=== PATIENT | female | born 1995 | race Two or more races ===

== ENCOUNTER 2017-01-11 21:39 | Emergency (ER) | payer SELFPAY ==
[2015-11-03 21:00] VITALS: BMI 28.4
[~2017-01-11 21:39] MED LIST: ACETAMINOPHEN325 MG PO; IBUPROFEN600 MG PO; PERCOCET 10/3251 TA1 PO; PRENATAL COMPLE1 TAB PO
== END 2017-01-11 23:30 | disposition home or self-care (01) ==
LOC: D.ER 21:39
DX: S16.1XXA Strain of muscle, fascia and tendon at neck level, initial encounter (principal); V43.52XA Car driver injured in collision with other type car in traffic accident, initial encounter; Y93.89 Activity, other specified; Y92.410 Unspecified street and highway as the place of occurrence of the external cause; F17.200 Nicotine dependence, unspecified, uncomplicated

== ENCOUNTER 2017-10-22 15:51 | Emergency (ER) | payer SELFPAY ==
[2015-11-03 21:00] VITALS: BMI 28.4
[2017-10-22 16:35] LABS: BASOPHILS 0.2 % (0-2); EOSINOPHILS 1.9 % (0-7); HEMATOCRIT 41.9 % (36.0-48.0); HEMOGLOBIN 13.8 g/dL (12-16); IMMATURE GRANULOCYTES 0.3 % (0-5); LYMPHOCYTES 28.2 % (15-50); MCH 29.4 pg (26.0-34.0); MCHC 32.9 g/dL (31.0-37.0); MCV 89.3 fL (80.0-100.0); MEAN PLATELET VOLUME 10.7 fL (7.4-10.4); MONOCYTES 7.9 % (2-11); NEUTROPHILS 61.5 % (40-80); RBC 4.69 10x6/uL (4.00-5.40); RDW 13.6 % (11.5-14.5); WBC 8.8 10x3/uL (4.8-10.8)
[2017-10-22 16:52] LABS: PLATELET COUNT 220 10x3/uL (130-400)
[2017-10-22 16:58] LABS: APPEARANCE CLEAR (CLEAR); BILIRUBIN NEGATIVE (NEGATIVE); COLOR YELLOW (YELLOW); GLUCOSE NEGATIVE (NEGATIVE); HCG URINE POSITIVE (NEGATIVE); KETONE NEGATIVE (NEGATIVE); NITRITE NEGATIVE (NEGATIVE); PROTEIN NEGATIVE (NEGATIVE); SPECIFIC GRAVITY 1.015 (1.005-1.020); UROBILINOGEN NORMAL (NORMAL)
[2017-10-22 17:12] LABS: ALBUMIN 3.7 g/dL (3.4-5.0); ALKALINE PHOSPHATASE 37 U/L (46-116); ALT (SGPT) 39 U/L (10-68); BILIRUBIN - TOTAL 1.05 mg/dL (0.2-1.3); CALC OSMOLALITY 275 mosm/kg (275-300); CALCIUM 8.8 mg/dL (8.5-10.1); CARBON DIOXIDE 27.6 mmol/L (21.0-32.0); CHLORIDE - SERUM 101 mmol/L (98-107); CREATININE - SERUM 0.6 mg/dL (0.6-1.3); GLUCOSE 100 mg/dL (74-106); POTASSIUM - SERUM 3.3 mmol/L (3.5-5.1); PROTEIN - SERUM 7.5 g/dL (6.4-8.2); SODIUM 138 mmol/L (136-145); UREA NITROGEN 13 mg/dL (7-18); eGFR NON AFRICAN AMERICAN > 90 mL/min (90-120)
[2017-10-22 17:34] LABS: HCG - QUANTITATIVE (MATERNAL) 27359 mIU/mL
== END 2017-10-22 17:50 | disposition home or self-care (01) ==
LOC: D.ER 15:51
PROVIDERS: Physician Assistant Medical
DX: O21.9 Vomiting of pregnancy, unspecified (principal); Z3A.01 Less than 8 weeks gestation of pregnancy

== ENCOUNTER 2017-11-21 14:07 | Emergency (ER) | payer MEDICAID ==
[2015-11-03 21:00] VITALS: BMI 28.4
[2017-11-21 16:02] LABS: BASOPHILS 0.1 % (0-2); EOSINOPHILS 1.6 % (0-7); HEMATOCRIT 39.5 % (36.0-48.0); HEMOGLOBIN 13.4 g/dL (12-16); IMMATURE GRANULOCYTES 0.3 % (0-5); LYMPHOCYTES 26.2 % (15-50); MCH 29.8 pg (26.0-34.0); MCHC 33.9 g/dL (31.0-37.0); MCV 87.8 fL (80.0-100.0); MEAN PLATELET VOLUME 10.5 fL (7.4-10.4); MONOCYTES 7.3 % (2-11); NEUTROPHILS 64.5 % (40-80); PLATELET COUNT 203 10x3/uL (130-400); RDW 13.1 % (11.5-14.5); WBC 8.8 10x3/uL (4.8-10.8)
[2017-11-21 16:14] LABS: APPEARANCE CLEAR (CLEAR); BILIRUBIN NEGATIVE (NEGATIVE); COLOR YELLOW (YELLOW); GLUCOSE NEGATIVE (NEGATIVE); KETONE NEGATIVE (NEGATIVE); NITRITE NEGATIVE (NEGATIVE); PROTEIN NEGATIVE (NEGATIVE); UROBILINOGEN NORMAL (NORMAL)
[2017-11-21 16:15] LABS: ALBUMIN 3.4 g/dL (3.4-5.0); ALKALINE PHOSPHATASE 38 U/L (46-116); ALT (SGPT) 28 U/L (10-68); CALC OSMOLALITY 268 mosm/kg (275-300); CALCIUM 8.7 mg/dL (8.5-10.1); CARBON DIOXIDE 27.8 mmol/L (21.0-32.0); CHLORIDE - SERUM 100 mmol/L (98-107); CREATININE - SERUM 0.5 mg/dL (0.6-1.3); GLUCOSE 77 mg/dL (74-106); POTASSIUM - SERUM 3.5 mmol/L (3.5-5.1); PROTEIN - SERUM 7.3 g/dL (6.4-8.2); SODIUM 136 mmol/L (136-145); UREA NITROGEN 7 mg/dL (7-18); eGFR NON AFRICAN AMERICAN > 90 mL/min (90-120)
== END 2017-11-21 17:26 | disposition home or self-care (01) ==
LOC: D.ER 14:07
PROVIDERS: Family Medicine
DX: O21.9 Vomiting of pregnancy, unspecified (principal); Z3A.10 10 weeks gestation of pregnancy

== ENCOUNTER 2017-11-25 23:17 | Emergency (ER) | payer MEDICAID ==
[2015-11-03 21:00] VITALS: BMI 28.4
[2017-11-25 23:55] LABS: BASOPHILS 0.1 % (0-2); EOSINOPHILS 1.9 % (0-7); HEMATOCRIT 38.2 % (36.0-48.0); HEMOGLOBIN 12.9 g/dL (12-16); IMMATURE GRANULOCYTES 0.4 % (0-5); LYMPHOCYTES 28.4 % (15-50); MCH 29.8 pg (26.0-34.0); MCHC 33.8 g/dL (31.0-37.0); MCV 88.2 fL (80.0-100.0); MEAN PLATELET VOLUME 10.6 fL (7.4-10.4); MONOCYTES 6.5 % (2-11); NEUTROPHILS 62.7 % (40-80); PLATELET COUNT 200 10x3/uL (130-400); RBC 4.33 10x6/uL (4.00-5.40); RDW 13.1 % (11.5-14.5)
[2017-11-26 00:21] LABS: HCG SERUM POSITIVE (NEGATIVE)
[2017-11-26 00:23] LABS: APPEARANCE CLEAR (CLEAR); BILIRUBIN NEGATIVE (NEGATIVE); COLOR YELLOW (YELLOW); GLUCOSE NEGATIVE (NEGATIVE); KETONE NEGATIVE (NEGATIVE); NITRITE NEGATIVE (NEGATIVE); PROTEIN NEGATIVE (NEGATIVE); UROBILINOGEN NORMAL (NORMAL)
[2017-11-26 00:24] LABS: BACTERIA FEW /hpf (NONE SEEN); EPITHELIAL CELLS 0-5 /hpf (0-5); SPERMATOZOA PRESENT /hpf (NONE SEEN); WHITE CELLS - URINE 0-5 /hpf (0-5)
== END 2017-11-26 03:05 | disposition home or self-care (01) ==
LOC: D.ER 23:17
PROVIDERS: Family Medicine
DX: O20.0 Threatened abortion (principal); Z3A.11 11 weeks gestation of pregnancy

== ENCOUNTER 2017-12-24 17:12 | Emergency (ER) | payer MEDICAID ==
[2015-11-03 21:00] VITALS: BMI 28.4
[2017-12-24 17:55] LABS: BASOPHILS 0.1 % (0-2); EOSINOPHILS 1.8 % (0-7); HEMATOCRIT 37.4 % (36.0-48.0); HEMOGLOBIN 12.5 g/dL (12-16); IMMATURE GRANULOCYTES 0.3 % (0-5); LYMPHOCYTES 24.4 % (15-50); MCH 29.9 pg (26.0-34.0); MCHC 33.4 g/dL (31.0-37.0); MCV 89.5 fL (80.0-100.0); MEAN PLATELET VOLUME 10.7 fL (7.4-10.4); MONOCYTES 5.4 % (2-11); PLATELET COUNT 212 10x3/uL (130-400); RBC 4.18 10x6/uL (4.00-5.40); RDW 12.9 % (11.5-14.5); WBC 7.3 10x3/uL (4.8-10.8)
[2017-12-24 18:34] LABS: HCG SERUM POSITIVE (NEGATIVE)
[2017-12-24 18:44] LABS: APPEARANCE CLEAR (CLEAR); BILIRUBIN NEGATIVE (NEGATIVE); COLOR YELLOW (YELLOW); EPITHELIAL CELLS OCC /hpf (0-5); GLUCOSE NEGATIVE (NEGATIVE); KETONE NEGATIVE (NEGATIVE); NITRITE NEGATIVE (NEGATIVE); PROTEIN NEGATIVE (NEGATIVE); RED CELLS - URINE OCC /hpf (0-5); UROBILINOGEN NORMAL (NORMAL); WHITE CELLS - URINE OCC /hpf (0-5)
[2017-12-24 18:45] LABS: BACTERIA FEW /hpf (NONE SEEN)
== END 2017-12-24 20:56 | disposition home or self-care (01) ==
LOC: D.ER 17:12
PROVIDERS: Emergency Medicine; Nurse Practitioner Family
DX: O20.9 Hemorrhage in early pregnancy, unspecified (principal); Z3A.15 15 weeks gestation of pregnancy; N76.0 Acute vaginitis; B96.89 Other specified bacterial agents as the cause of diseases classified elsewhere

== ENCOUNTER → 2018-03-13 12:55 | Outpatient (CLI) | payer MEDICAID ==
[2015-11-03 21:00] VITALS: BMI 28.4
[2018-03-13 17:47] LABS: APPEARANCE CLEAR (CLEAR); BILIRUBIN NEGATIVE (NEGATIVE); COLOR YELLOW (YELLOW); GLUCOSE NEGATIVE (NEGATIVE); KETONE NEGATIVE (NEGATIVE); NITRITE NEGATIVE (NEGATIVE); PROTEIN NEGATIVE (NEGATIVE); UROBILINOGEN NORMAL (NORMAL)
== END | disposition home or self-care (01) ==
LOC: D.LDO 12:55
PROVIDERS: Obstetrics & Gynecology
DX: O36.8130 Decreased fetal movements, third trimester, not applicable or unspecified (principal); Z3A.31 31 weeks gestation of pregnancy

== ENCOUNTER → 2018-04-03 20:02 | Outpatient (CLI) | payer MEDICAID ==
[2015-11-03 21:00] VITALS: BMI 28.4
[2018-04-03 21:10] LABS: APPEARANCE CLEAR (CLEAR); BILIRUBIN NEGATIVE (NEGATIVE); COLOR STRAW (YELLOW); GLUCOSE NEGATIVE (NEGATIVE); KETONE NEGATIVE (NEGATIVE); NITRITE NEGATIVE (NEGATIVE); PROTEIN NEGATIVE (NEGATIVE); UROBILINOGEN NORMAL (NORMAL)
[2018-04-03 21:13] LABS: RED CELLS - URINE 0-5 /hpf (0-5)
[2018-04-03 21:14] LABS: BACTERIA FEW /hpf (NONE SEEN)
[2018-04-03 21:17] LABS: BASOPHILS 0.1 % (0-2); EOSINOPHILS 1.5 % (0-7); HEMATOCRIT 34.4 % (36.0-48.0); HEMOGLOBIN 10.9 g/dL (12-16); IMMATURE GRANULOCYTES 0.7 % (0-5); LYMPHOCYTES 32.9 % (15-50); MCH 27.8 pg (26.0-34.0); MCHC 31.7 g/dL (31.0-37.0); MCV 87.8 fL (80.0-100.0); MEAN PLATELET VOLUME 11.3 fL (7.4-10.4); MONOCYTES 6.5 % (2-11); NEUTROPHILS 58.3 % (40-80); PLATELET COUNT 187 10x3/uL (130-400); RBC 3.92 10x6/uL (4.00-5.40); RDW 12.6 % (11.5-14.5); WBC 7.4 10x3/uL (4.8-10.8)
[2018-04-03 21:22] LABS: INR 1.06 (0.85-1.17); PROTIME 13.4 SECONDS (11.6-15.0)
[2018-04-03 22:05] LABS: APPEARANCE CLEAR (CLEAR); BILIRUBIN NEGATIVE (NEGATIVE); COLOR STRAW (YELLOW); GLUCOSE NEGATIVE (NEGATIVE); KETONE NEGATIVE (NEGATIVE); NITRITE NEGATIVE (NEGATIVE); PROTEIN NEGATIVE (NEGATIVE); UROBILINOGEN NORMAL (NORMAL)
== END | disposition home or self-care (01) ==
LOC: D.LDO 20:02
PROVIDERS: Obstetrics & Gynecology
DX: O26.893 Other specified pregnancy related conditions, third trimester (principal); Z3A.29 29 weeks gestation of pregnancy; M54.5 Low back pain; R10.30 Lower abdominal pain, unspecified

== ENCOUNTER → 2018-04-09 15:49 | Outpatient (CLI) | payer MEDICAID ==
[2015-11-03 21:00] VITALS: BMI 28.4
== END | disposition home or self-care (01) ==
LOC: D.LDO 15:49
DX: O26.893 Other specified pregnancy related conditions, third trimester (principal); Z3A.30 30 weeks gestation of pregnancy

== ENCOUNTER → 2018-04-10 21:18 | Outpatient (CLI) | payer MEDICAID ==
[2015-11-03 21:00] VITALS: BMI 28.4
[2018-04-10 21:49] LABS: APPEARANCE HAZY (CLEAR); BILIRUBIN NEGATIVE (NEGATIVE); COLOR YELLOW (YELLOW); GLUCOSE NEGATIVE (NEGATIVE); KETONE MODERATE mg/dL (NEGATIVE); NITRITE NEGATIVE (NEGATIVE); PROTEIN NEGATIVE (NEGATIVE); SPECIFIC GRAVITY 1.015 (1.005-1.020); UROBILINOGEN NORMAL (NORMAL)
[2018-04-10 21:50] LABS: BACTERIA MODERATE /hpf (NONE SEEN); MUCUS <1+ /lpf (NONE SEEN); RED CELLS - URINE 0-5 /hpf (0-5); WHITE CELLS - URINE 0-5 /hpf (0-5)
== END | disposition home or self-care (01) ==
LOC: D.LDO 21:18
PROVIDERS: Obstetrics & Gynecology
DX: O26.899 Other specified pregnancy related conditions, unspecified trimester (principal); Z3A.00 Weeks of gestation of pregnancy not specified; R10.30 Lower abdominal pain, unspecified; R50.9 Fever, unspecified; R30.0 Dysuria; M54.5 Low back pain

== ENCOUNTER → 2018-04-30 15:13 | Outpatient (CLI) | payer MEDICAID ==
[2015-11-03 21:00] VITALS: BMI 28.4
[~2018-04-30 15:13] MED LIST changes: +TYLENOL W/CODEI1 TAB PO
== END | disposition home or self-care (01) ==
LOC: D.LDO 15:13
DX: O36.8130 Decreased fetal movements, third trimester, not applicable or unspecified (principal); Z3A.33 33 weeks gestation of pregnancy

== ENCOUNTER → 2018-05-12 19:40 | Outpatient (CLI) | payer MEDICAID ==
[2015-11-03 21:00] VITALS: BMI 28.4
[2018-05-12 22:48] LABS: APPEARANCE CLEAR (CLEAR); COLOR YELLOW (YELLOW); GLUCOSE NEGATIVE (NEGATIVE); KETONE NEGATIVE (NEGATIVE); NITRITE NEGATIVE (NEGATIVE); PROTEIN NEGATIVE (NEGATIVE)
[2018-05-12 22:49] LABS: BILIRUBIN NEGATIVE (NEGATIVE); UROBILINOGEN NORMAL (NORMAL)
== END | disposition home or self-care (01) ==
LOC: D.LDO 19:40
PROVIDERS: Obstetrics & Gynecology
DX: O26.893 Other specified pregnancy related conditions, third trimester (principal); Z3A.35 35 weeks gestation of pregnancy

== ENCOUNTER → 2018-05-15 02:39 | Outpatient (CLI) | payer MEDICAID ==
[2015-11-03 21:00] VITALS: BMI 28.4
[2018-05-15 02:53] LABS: APPEARANCE CLEAR (CLEAR); BILIRUBIN NEGATIVE (NEGATIVE); COLOR YELLOW (YELLOW); GLUCOSE NEGATIVE (NEGATIVE); KETONE NEGATIVE (NEGATIVE); NITRITE NEGATIVE (NEGATIVE); PROTEIN NEGATIVE (NEGATIVE); SPECIFIC GRAVITY 1.005 (1.005-1.020); UROBILINOGEN NORMAL (NORMAL)
== END | disposition home or self-care (01) ==
LOC: D.LDO 02:39
PROVIDERS: Obstetrics & Gynecology
DX: O26.893 Other specified pregnancy related conditions, third trimester (principal); Z3A.35 35 weeks gestation of pregnancy

== ENCOUNTER → 2018-05-16 10:24 | Outpatient (CLI) | payer MEDICAID ==
[2015-11-03 21:00] VITALS: BMI 28.4
== END | disposition home or self-care (01) ==
LOC: D.LDO 10:24
DX: O26.899 Other specified pregnancy related conditions, unspecified trimester (principal); Z3A.00 Weeks of gestation of pregnancy not specified

== ENCOUNTER 2018-05-18 16:08 | Inpatient (IN) | payer MEDICAID ==
[~2018-05-18] VITALS: Ht 154.9 cm; Wt 69.4 kg
--- NOTE | ~2018-05-18 | OP ---
PATIENT NAME: JESUS LOPEZ MEDICAL RECORD: [id number] :89 LOCATION:[facility] D.1223 ADMISSION DATE:05/18/18 SURGEON: DOUG MONGE MD DATE OF OPERATION: 05/18/2018 PREOPERATIVE DIAGNOSES: 1. Intrauterine at 36 weeks and 2 days. 2. Labor. 3. History of previous section. POSTOPERATIVE DIAGNOSES: 1. Intrauterine at 36 weeks and 2 days. 2. Labor. 3. History of previous section. 4. Early uterine dehiscence. PROCEDURE: Repeat low transverse section with vacuum assistance. SPECIMENS: Placenta and cord for gases. ANESTHESIA: Regional via spinal. INTRAVENOUS FLUIDS: Per anesthesia records. ESTIMATED BLOOD LOSS: 1000 cc. FINDINGS: 1. Viable . 2. Placenta delivered manually intact, 3-vessel cord noted. 3. Early uterine dehiscence noted. 4. Normal adnexa bilaterally. COMPLICATIONS: None apparent. DESCRIPTION OF THE PROCEDURE: The patient was taken to the operating room where regional anesthesia was achieved without any difficulty. The patient was then prepped and draped in normal sterile fashion in the dorsal supine position. SCDs were on and functioning appropriately. A Moon catheter in place. Urine was draining freely. At this point, a repeat Pfannenstiel skin incision was made, extended downward to the underlying subcutaneous fat to the level of the fascia. This was then excised in the midline using the scalpel and the fascial incision was extended bilaterally using the Rae scissors. Superior and inferior aspects of the fascial incision were then grasped with Cade clamps times 2, tented upward, and sharply dissected from the underlying rectus muscle using the Rae scissors and the Bovie cautery. At this point, the rectus muscles were bluntly in the midline and the peritoneum entered sharply at the superior aspect of the incision using the Metzenbaum scissors. The peritoneal incision was then extended bilaterally using the Metzenbaum scissors. A bladder blade was placed in the pelvis. The bladder flap was noted and early uterine dehiscence was noted. The low transverse incision was made at the superior aspect of the early uterine wall separation. The uterine incision was extended using the Pelosi method. OPERATIVE REPORT [id number] JESUS LOPEZ The infant's head was found to be extended and a Kiwi vacuum was placed on the occiput with correction to head flexion without traction on the neck. Following delivery of the head, the vacuum was removed. No evidence of trauma or chephalohematoma was noted. 's head and body were delivered atraumatically. The baby was bulb suctioned upon delivery. Cord was clamped times 2, cut, and the infant was handed to the awaiting nursery team. Cord was obtained for gases. The placenta was removed manually intact, 3-vessel cord was noted. Uterus was then exteriorized, cleared of all clots and debris and vigorously massaged and a good uterine tone was noted. The uterine incision was then repaired with 0 Vicryl in a running locked fashion times 2 with good hemostasis noted. Posterior cul-de-sac has been thoroughly irrigated and the uterus was replaced into the pelvis. The anterior cul-de-sac was then thoroughly irrigated and again the uterine incision was noted to be hemostatic. Counts were correct times 2 for sponges, needles, and instruments. The fascia was then repaired with 0-looped PDS times 1 and the skin repaired with azar. The patient tolerated the procedure well, transferred to postanesthesia recovery stable without incident. TRANSINT:[id number] Voice Confirmation ID: [id number] DOCUMENT ID: [id number] DOUG MONGE MD at 1304 CC: [id number] DICTATION DATE: 06/28/18610 [place] OPERATOR: 06/28/18 0852 DIS IN 05/20/18 [id number] [place] [address]
--- NOTE | ~2018-05-18 | DS ---
PATIENT:JESUS LOPEZ :89 MEDICAL RECORD: [id number] DISCHARGE SUMMARY ADMISSION DATE: 05/18/18 DISCHARGE DATE: 05/20/18 HOSPITAL COURSE: The patient was admitted on 05/18/2018. A 23-year-old G3, P2 at 36 weeks and 2 days with a history of previous section, admitted in early labor. The patient was noted to be O positive, group B strep unknown and rubella unknown. PAST MEDICAL HISTORY: Significant for chlamydia infection. PAST SURGICAL HISTORY: Significant for cholecystectomy and times 2. ALLERGIES: The patient reported no allergies. FAMILY HISTORY: The patient reported no significant family history. SOCIAL HISTORY: The patient reported no significant social history. PHYSICAL EXAMINATION: VITAL SIGNS: On initial evaluation, the patient's vital signs were stable. The patient was normotensive and afebrile. LUNGS: Clear to auscultation. CARDIOVASCULAR: Regular rate and rhythm. PELVIC: Uterus was appropriately sized and nontender. EXTREMITIES: Lower extremities are free of Homans sign. LABORATORY DATA: Admit hemoglobin was found to be 10.5 and a white count of 7 and platelet count of 192. Category 1 tracing was noted upon admission. ASSESSMENT AND PLAN: 1. Intrauterine at 36 weeks and 2 days. 2. Latent labor. 3. History of chlamydia. 4. History of previous section times 2. Plan at that time to proceed with repeat section. Risks and benefits were explained. The patient voiced understanding and consent. The patient did well overnight on postop day #0, tolerating clear liquid diet and IV fluids. The patient with a Dilaudid WARP HAULER and IV Toradol. Moon catheter was left in overnight and urine output found to be adequate. SCDs were on and functioning appropriately. On the morning of postop day #1, the patient was doing well. Vital signs were stable. The patient was afebrile. Uterus was infraumbilical and appropriately tender. Incision was clean, dry and intact. At that time, the patient was advanced to general diet and p.o. pain meds. Moon was discontinued and ambulation begun. The patient continued to improve in the afternoon of postoperative day #1. On the morning of postop day #2, the patient remained afebrile. Vital signs were stable. Hemoglobin was stable. Incision was clean, dry and intact. Uterus was infraumbilical and appropriately tender. Incision was clean, dry and intact. The patient was tolerating general diet and p.o. pain meds, ambulating and voiding freely. The patient was discharged home on postop day #2 with instructions to follow up for staple removal in 1 week. DISCHARGE SUMMARY REPORT [id number] JESUS LOPEZ:[id number] Voice Confirmation ID: [id number] DOCUMENT ID: [id number] DOUG MONGE MD at 1304 CC: [id number] DICTATION DATE: 06/28/18614 [place] CLERK: 06/28/18 1613 DIS IN 05/20/18 [facility] [address] [place] [address]
[~2018-05-18 16:08] MED LIST changes: -TYLENOL W/CODEI1 TAB PO
[2018-05-18 18:07] LABS: APPEARANCE CLEAR (CLEAR); COLOR YELLOW (YELLOW)
[2018-05-18 18:12] VITALS: BP 111/69; Ht 154.9 cm; Wt 69.4 kg
[2018-05-18 18:12] LABS: BILIRUBIN NEGATIVE (NEGATIVE); GLUCOSE NEGATIVE (NEGATIVE); KETONE NEGATIVE (NEGATIVE); NITRITE NEGATIVE (NEGATIVE); PROTEIN NEGATIVE (NEGATIVE); UROBILINOGEN NORMAL (NORMAL)
[2018-05-18 18:14] LABS: EPITHELIAL CELLS OCC /hpf (0-5); WHITE CELLS - URINE 0-5 /hpf (0-5)
[2018-05-18 18:15] LABS: BACTERIA FEW /hpf (NONE SEEN)
[2018-05-18 18:59] LABS: HEMOGLOBIN 10.5 g/dL (12-16); MCH 26.7 pg (26.0-34.0); MCHC 31.8 g/dL (31.0-37.0); MEAN PLATELET VOLUME 12.1 fL (7.4-10.4); RBC 3.93 10x6/uL (4.00-5.40); RDW 13.5 % (11.5-14.5)
[2018-05-18] MEDS ORDERED: TYLENOL W/CODEI1 TAB PO (19:04)
[2018-05-18 22:17] VITALS: BP 102/68
[2018-05-18 22:30] VITALS: BP 109/71
[2018-05-18 22:45] VITALS: BP 102/62
[2018-05-18 23:00] VITALS: BP 109/65
[2018-05-18 23:30] VITALS: BP 102/61
[2018-05-19] VITALS: BP 104/65
[2018-05-19 00:30] VITALS: BP 107/67
[2018-05-19 04:05] VITALS: BP 94/52
[2018-05-19 04:45] LABS: BASOPHILS 0.1 % (0-2); EOSINOPHILS 0.1 % (0-7); HEMATOCRIT 31.5 % (36.0-48.0); HEMOGLOBIN 9.9 g/dL (12-16); IMMATURE GRANULOCYTES 0.6 % (0-5); LYMPHOCYTES 18.6 % (15-50); MCH 26.5 pg (26.0-34.0); MCHC 31.4 g/dL (31.0-37.0); MCV 84.5 fL (80.0-100.0); MEAN PLATELET VOLUME 11.4 fL (7.4-10.4); MONOCYTES 6.7 % (2-11); NEUTROPHILS 73.9 % (40-80); PLATELET COUNT 155 10x3/uL (130-400); RBC 3.73 10x6/uL (4.00-5.40); RDW 13.5 % (11.5-14.5); WBC 10.7 10x3/uL (4.8-10.8)
[2018-05-19 08:15] VITALS: BP 111/62
[2018-05-19 13:01] LABS: BASOPHILS 0.1 % (0-2); EOSINOPHILS 0.5 % (0-7); HEMATOCRIT 29.7 % (36.0-48.0); HEMOGLOBIN 9.4 g/dL (12-16); IMMATURE GRANULOCYTES 0.5 % (0-5); LYMPHOCYTES 17.1 % (15-50); MCH 26.6 pg (26.0-34.0); MCHC 31.6 g/dL (31.0-37.0); MCV 84.1 fL (80.0-100.0); MEAN PLATELET VOLUME 11.6 fL (7.4-10.4); MONOCYTES 7.5 % (2-11); NEUTROPHILS 74.3 % (40-80); PLATELET COUNT 152 10x3/uL (130-400); RBC 3.53 10x6/uL (4.00-5.40); RDW 13.7 % (11.5-14.5); WBC 10.3 10x3/uL (4.8-10.8)
[2018-05-19 13:10] VITALS: BP 99/64
[2018-05-19 19:30] VITALS: BP 99/60
[2018-05-20 00:05] VITALS: BP 100/57
[2018-05-20 02:36] VITALS: BP 104/53
[2018-05-20 07:31] LABS: RAPID PLASMA REAGIN Non Reactive (Non Reactive)
[2018-05-20 07:35] VITALS: BP 100/60
[2018-05-20 12:15] VITALS: BP 99/63
== END 2018-05-20 17:51 | disposition home or self-care (01) | DRG 766 ==
LOC: D.LDO 16:08 → D.LD 18:07 → D.WS 18:07
PROVIDERS: Obstetrics & Gynecology
PROC: 10D00Z1 Extraction of Products of Conception, Low, Open Approach (ICD-10-PCS; principal; 2018-05-18 19:53)
DX: O98.32 Other infections with a predominantly sexual mode of transmission complicating childbirth (principal); Z3A.36 36 weeks gestation of pregnancy; Z37.0 Single live birth; O34.219 Maternal care for unspecified type scar from previous cesarean delivery